=== PATIENT | male | born 1955 | race Caucasian/White ===

== ENCOUNTER → 2019-11-07 10:06 | Outpatient (BNVA) | payer BC, SELFPAY | PROVIDERS: PCP Family Medicine; Referring Provider Family Medicine; Visit Provider Specialist | DX: M25.561 Pain in right knee (principal); M25.562 Pain in left knee; M17.0 Bilateral primary osteoarthritis of knee; M25.462 Effusion, left knee; M25.461 Effusion, right knee | CPT/HCPCS: 73560; 73565 ==